=== PATIENT | female | born 1970 | race Caucasian/White ===

== ENCOUNTER → 2016-06-16 | Outpatient (CLI) | payer BC ==
[~2016-06-16] MED LIST: SYNTHROID0.137 MG PO; ULTRAM 50MG TAB50 MG PO; ZOLOFT 100MG100 MG PO
== END ==
LOC: MC.RAD 12:56
DX: Z12.31 Encounter for screening mammogram for malignant neoplasm of breast (principal)

== ENCOUNTER → 2016-07-07 | Outpatient (CLI) | payer BC | LOC: MHCPAIN 08:54 | DX: G89.29 Other chronic pain (principal); M50.90 Cervical disc disorder, unspecified, unspecified cervical region; M54.81 Occipital neuralgia | CPT/HCPCS: G0463 ==

== ENCOUNTER 2016-10-26 15:31 | Emergency (ER) | payer BC ==
[~2016-10-26] VITALS: Ht 172.7 cm; Wt 63.6 kg
[2016-10-26 15:33] VITALS: BP 131/78; PULSE 80; TEMP 99
[2016-10-26] MEDS ORDERED: SYNTHROID0.137 MG PO (15:36)
[2016-10-26] MEDS ORDERED: ULTRAM 50MG TAB50 MG PO (15:36)
[2016-10-26] MEDS ORDERED: ZOLOFT 100MG100 MG PO (15:36)
== END 2016-10-26 17:05 | disposition home or self-care (01) ==
LOC: COL.ER 15:31
DX: S50.02XA Contusion of left elbow, initial encounter (principal); Z85.850 Personal history of malignant neoplasm of thyroid; Z90.89 Acquired absence of other organs; Z23 Encounter for immunization; W01.0XXA Fall on same level from slipping, tripping and stumbling without subsequent striking against object, initial encounter; Y92.512 Supermarket, store or market as the place of occurrence of the external cause

== ENCOUNTER → 2017-01-16 | Outpatient (CLI) | payer BC | LOC: COL.RAD 08:15 | DX: E07.89 Other specified disorders of thyroid (principal); E89.0 Postprocedural hypothyroidism; Z85.850 Personal history of malignant neoplasm of thyroid ==